=== PATIENT | male | born 1960 | race Caucasian/White ===

== ENCOUNTER → 2019-07-23 | Day surgery (SDC) | payer OTHER ==
[2019-07-17 12:53] VITALS: BMI 30.8
[~2019-07-23] MED LIST: MIDAZOLAM HCL 2 MG/2 ML SINGLE DOSE VIAL ONE; PROPOFOL 20 ML ONE; SUCCINYLCHOLINE CHLORIDE 200 MG/10 ML SYRINGE ONE
[2019-07-23 08:56] VITALS: BP 130/90; PULSE 68; TEMP 98.4
[2019-07-23 08:57] LABS: INR 2.02 (0.82-1.09); PROTHROMBIN TIME (PATIENT) 22.3 SEC (10.2-13.0)
== END | disposition home or self-care (01) ==
LOC: FASU 08:18
PROVIDERS: ATTEND Orthopaedic Surgery Hand Surgery
PROC: 01N50ZZ Release Median Nerve, Open Approach (ICD-10-PCS; principal; 2019-07-23)
DX: Z53.09 Procedure and treatment not carried out because of other contraindication (principal); G56.01 Carpal tunnel syndrome, right upper limb
CPT/HCPCS: 36415; 85610

== ENCOUNTER 2019-07-24 13:18 | Day surgery (SDC) | payer OTHER ==
[2019-07-24 13:23] VITALS: BMI 30.8
[2019-07-24 13:53] LABS: INR 1.47 (0.82-1.09); PROTHROMBIN TIME (PATIENT) 16.3 SEC (10.2-13.0)
[2019-07-24] MEDS ORDERED: MIDAZOLAM HCL 2 MG/2 ML SINGLE DOSE VIAL ONE (13:58)
[2019-07-24] MEDS ORDERED: PROPOFOL 20 ML ONE (13:58)
[2019-07-24] MEDS ORDERED: LIDOCAINE 1%/EPI 1:100000 (20 ML MULTI DOSE VIAL) ONE (14:29)
[2019-07-24] MEDS ORDERED: ONDANSETRON 4 MG/2 ML VIAL IVPUSH PRN (16:09)
[2019-07-24] MEDS ORDERED: oxyCODONE HCL 5 MG TABLET PO PRN (16:09)
[2019-07-24] MEDS ORDERED: LACTATED RINGERS SOLUTION 1,000 ML IV SCH (16:15)
[2019-07-24 17:11] VITALS: PULSE 60; TEMP 98.7
[2019-07-24 17:15] VITALS: BP 123/84
--- NOTE | 2019-07-25 08:59 | OP ---
DATE OF OPERATION: 07/24/2019 PREOPERATIVE DIAGNOSIS: Right carpal tunnel syndrome. POSTOPERATIVE DIAGNOSIS: Right carpal tunnel syndrome. OPERATIVE PROCEDURE: Right carpal tunnel release. SURGEON: Rahul Barker MD ANESTHESIA: Local, with sedation. COMPLICATIONS: None. ESTIMATED BLOOD LOSS: Minimal. INDICATIONS FOR PROCEDURE: The patient is a 59-year-old male with the above findings, indicated for operative treatment. The risks, benefits and alternatives were discussed with the patient at length and proper informed consent was obtained. Of note, the patient was initially scheduled for endoscopic carpal tunnel release; however, it was canceled on the day prior due to an INR that was too high and on the day of the surgery, his INR was still at approximately 1.5. I discussed with him the options and I believe that the safer procedure for him, given the high INR, would be to proceed with open carpal tunnel release rather than endoscopic carpal tunnel release, and he desired to proceed with this procedure. DESCRIPTION OF PROCEDURE: After proper identification of the patient and correct operative site, the patient was brought to the operating room and placed supine on the table, with all bony prominences well-padded. Sedation was given. Local anesthesia was given with 1% lidocaine with epinephrine. The right upper extremity was prepped and draped in the usual sterile fashion. A well-padded tourniquet was placed after sterile prep. Esmarch bandage was used to exsanguinate the right upper extremity, and the tourniquet was inflated to 250 mmHg. A longitudinal incision was made in the proximal aspect of the palm. Throughout the procedure, meticulous hemostasis was achieved using bipolar electrocautery at each level of incision. The incision was taken sharply through the skin with blunt and sharp dissection of the subcutaneous tissues, again cauterizing any potential bleeding throughout the procedure. The palmar fascia was divided longitudinally. The transcarpal ligament, along with the distal 4 cm of the antebrachial fascia, was divided under direct visualization with loupe magnification. This provided complete release of the median nerve at the wrist. The wound was irrigated and repaired with 5-0 nylon suture. Sterile dressings were applied. A splint was placed. Compression was held on the wrist for approximately 5 minutes and the hand was elevated. The patient was brought to the recovery room in stable condition. He tolerated the procedure well. Postoperative check showed no indication of bleeding. RAHUL BARKER M.D. [id number]
== END 2019-07-24 17:35 | disposition home or self-care (01) ==
LOC: FASU 13:18
PROVIDERS: ATTEND Orthopaedic Surgery Hand Surgery
PROC: 01N50ZZ Release Median Nerve, Open Approach (ICD-10-PCS; principal; 2019-07-24 15:46)
DX: G56.01 Carpal tunnel syndrome, right upper limb (principal)
CPT/HCPCS: 36415; 85610; 94760

== ENCOUNTER 2021-04-30 13:41 | Emergency (ER) | payer OTHER ==
[2021-04-30] MEDS ORDERED: FLUORESCEIN NA 1 EA STRIP OD ONE (14:00)
[2021-04-30] MEDS ORDERED: PROPARACAINE 0.5% OPHTH SOLN 15 ML BTL OD ONE (14:00)
[2021-04-30 14:06] VITALS: BP 147/78; PULSE 65; TEMP 98.7; BMI 29.2
[2021-04-30] MEDS ORDERED: FLUORESCEIN NA 1 EA STRIP ONE (14:06)
[2021-04-30] MEDS ORDERED: TETRACAINE 0.5% OPHTH SOLN 2 ML BOTTLE ONE (14:06)
[2021-04-30] MEDS ORDERED: DIPHTH,PERTUSS(ACELL),TET 0.5 ML DISP.SYRIN IM ONE ×2 (14:27→14:49)
== END 2021-04-30 14:56 | disposition home or self-care (01) ==
LOC: FER 13:41
PROC: 3E0234Z Introduction of Serum, Toxoid and Vaccine into Muscle, Percutaneous Approach (ICD-10-PCS; principal; 2021-04-30)
DX: S05.91XA Unspecified injury of right eye and orbit, initial encounter (principal); W22.8XXA Striking against or struck by other objects, initial encounter
CPT/HCPCS: 90715; 99284-25

== ENCOUNTER 2022-04-08 18:40 | Emergency (ER) | payer OTHER ==
[2022-04-08 19:02] VITALS: BP 141/82; PULSE 65; RESP 18; TEMP 98; BMI 30.2
[2022-04-08] MEDS ORDERED: METHOCARBAMOL 500 MG TABLET PO ONE (19:46)
[2022-04-08] MEDS ORDERED: METHOCARBAMOL 500 MG TABLET ONE (19:50)
== END 2022-04-08 20:13 | disposition home or self-care (01) ==
LOC: FER 18:40
DX: R07.81 Pleurodynia (principal)
CPT/HCPCS: 71101-TC-LT-FY; 99283-25